=== PATIENT | female | born 1950 | race Caucasian/White ===

== ENCOUNTER 2017-02-09 16:20 | Emergency (ER) | payer MEDICARE, BC ==
[~2017-02-09] VITALS: Ht 160 cm; Wt 99.6 kg
[2017-02-09 16:34] VITALS: BP 156/95
[2017-02-09] MEDS ORDERED: MECL12.52 PO (16:56)
[2017-02-09] MEDS ORDERED: LEVO112T4 PO (16:56)
[2017-02-09] MEDS ORDERED: DILT300C42 PO (16:56)
[2017-02-09] MEDS ORDERED: OMEP20TA62 PO (16:56)
[2017-02-09] MEDS ORDERED: METF500T9 PO (16:56)
[2017-02-09] MEDS ORDERED: ALPR-475 PO (16:56)
[2017-02-09] MEDS ORDERED: LIOT5TAB3 PO (16:56)
[2017-02-09] MEDS ORDERED: LOSA25TA5 PO (16:56)
[2017-02-09] MEDS ORDERED: ONDANSETRON 2MG/ML, 2ML IVPush ONE (17:00)
[2017-02-09] MEDS ORDERED: SODIUM CHLORIDE 0.9% 1,000ML IVBOLUS ONE (17:00)
[2017-02-09] MEDS ORDERED: SODIUM CHLORIDE FLUSH 10ML SYR IVF ONE (17:00)
[2017-02-09] MEDS ORDERED: FAMOTIDINE 20 MG/2 ML IVP ONE (17:00)
== END 2017-02-09 19:00 | disposition home or self-care (01) ==
LOC: ED 18:45
DX: S96.912A Strain of unspecified muscle and tendon at ankle and foot level, left foot, initial encounter (principal); X58.XXXA Exposure to other specified factors, initial encounter; Y93.89 Activity, other specified; Y92.89 Other specified places as the place of occurrence of the external cause; Y99.8 Other external cause status; I10 Essential (primary) hypertension; Z90.49 Acquired absence of other specified parts of digestive tract; Z85.3 Personal history of malignant neoplasm of breast
CPT/HCPCS: 99284